=== PATIENT | female | born 1970 | race Caucasian/White ===

== ENCOUNTER 2021-07-30 10:19 | Emergency (ER) | payer OTHER ==
[~2021-07-30 10:19] MED LIST: ANTIVERT25 MG PO; ATARAX25 MG PO; AZATHIOPRINE50 MG PO; BACTRIM DS TAB1 EACH PO; BENZONATATE100 MG PO; CEFDINIR300 MG PO; CLOTRIMAZOLE10 ML PO; CORTISPORIN-TC10 M1 AU; CYMBALTA 30MG C30 MG PO; DIFLUCAN 100MG100 MG PO; DULERA 100 MCG8.8 GM INH; DUONEB 2.5-0.5M1 AMP INH; DUONEB 2.5-0.5M1 AMP NEB; ESTRACE1 MG PO; EVOXAC30 MG PO; FLOMAX0.4 MG PO; FLUMADINE100 MG PO; LEVAQUIN750 MG PO; METAMUCIL1 DOSE PO; MIRALAX17 GM PO; MUCINEX 600MG600 MG PO; NEURONTIN300 MG PO; NYSTATIN SUSP1 ML/ML SSW; PLAQUENIL200 MG PO; PREDNISONE5 MG PO; PROTONIX 40MG T40 MG PO; SINGULAIR10 MG PO; SPIRIVA18 MCG INH; ZOCOR40 MG PO; ZOFRAN8 MG PO
[2021-07-30] MEDS ORDERED: CYCLOBENZAPRINE10 MG PO (14:43)
[2021-07-30] MEDS ORDERED: RIZATRIPTAN10 M1 PO (14:43)
[2021-07-30] MEDS ORDERED: REGLAN10 MG PO (14:43)
== END 2021-07-30 15:14 | disposition home or self-care (01) ==
LOC: FER 10:19
DX: G43.909 Migraine, unspecified, not intractable, without status migrainosus (principal); M54.6 Pain in thoracic spine; M54.2 Cervicalgia; Z90.49 Acquired absence of other specified parts of digestive tract; F17.210 Nicotine dependence, cigarettes, uncomplicated
CPT/HCPCS: 70450; 72125; 72131; J3030

== ENCOUNTER 2021-08-23 08:15 | Inpatient (IN) | payer OTHER ==
[~2021-08-23] VITALS: Ht 176.5 cm; Wt 84.5 kg
[~2021-08-23 08:15] MED LIST changes: +CYCLOBENZAPRINE10 MG PO; +PREDNISONE 20MG20 MG PO; +REGLAN10 MG PO; +RIZATRIPTAN10 M1 PO
[2021-08-23 09:19] LABS: BASOPHIL 0.4 % (0-2); EOSINOPHIL 0.3 % (0-5); HCT 39.4 % (37.0-47.0); LYMPHOCYTE 11.2 % (15-48); MCH 33.1 pg (25.0-31.0); MCV 100.3 fL (78.0-100.0); MONOCYTE 6.3 % (0-12); MPV 10.5 fL (6.0-9.5); NEUTROPHIL 81.5 % (41-80); NRBC 0; PLT 268 K/uL (150-400); RBC 3.93 M/uL (4.20-5.40); RDW 14.5 % (11.5-14.0)
[2021-08-23 09:21] LABS: ALBUMIN 3.5 g/dL (3.4-5.0); BILIRUBIN - TOTAL 0.4 mg/dL (0.2-1.0); BUN/CREAT RATIO (CALC) 13.9 RATIO; CREATININE 0.79 mg/dL (0.51-0.95); GLOBULIN (CALCULATION) 3.3 g/dL; POTASSIUM 4.2 mmol/L (3.5-5.1); TOTAL PROTEIN 6.8 g/dL (6.4-8.2)
[2021-08-23 09:23] LABS: INR 0.98 (0.9-1.2); PROTHROMBIN TIME 12.4 SECONDS (11.8-13.4)
[2021-08-23 09:24] LABS: PTT 35.9 SECONDS (24.4-34.7)
[2021-08-23 09:25] LABS: D-DIMER 0.76 ug/mLFEU (0.00-0.41)
[2021-08-23 09:27] LABS: PRO-BNP 311 pg/mL (<125)
[2021-08-23 09:30] LABS: LACTIC ACID 1.9 mmol/L (0.4-1.9)
[2021-08-23] MEDS ORDERED: MUCINEX 600MG600 MG PO (13:17)
[2021-08-23] MEDS ORDERED: NYSTATIN SUSP1 ML/ML SSP (13:19)
[2021-08-23] MEDS ORDERED: CEFDINIR300 MG PO (13:20)
[2021-08-23] MEDS ORDERED: ANORO ELLIPTA1 EACH INH (13:21)
[2021-08-23] MEDS ORDERED: XANAX0.25 MG PO (13:23)
[2021-08-23] MEDS ORDERED: DEXILANT60 MG PO (13:25)
[2021-08-23] MEDS ORDERED: PILOCARPINE HCL PO (13:27)
[2021-08-23] MEDS ORDERED: FLEXERIL5 MG PO (13:29)
--- NOTE | 2021-08-24 19:50 | NUR ---
WALKED IN ON PATIENT TAKING HOME MEDICATIONS FROM HER PURSE PATIENT ASKED "NOT TO TELL BUT TO KEEP IT OUR SECRET' EXPLAINED THE IMPORTANCE OF NOT COMBINING HOME MEDICATIONS WITH INPATIENT MEDICATIONS PATIENT STATED "ITS JUST ALLERGY MEDICATION IT WON'T HURT ANYTHING", DR ALVARADO MADE AWARE OF THE SITUATION
[2021-08-25 06:22] LABS: HCT 37.7 % (37.0-47.0); HGB 12.7 g/dl (12.5-16.0); MCH 34.1 pg (25.0-31.0); MCHC 33.7 g/dL (32.0-36.0); MCV 101.3 fL (78.0-100.0); MPV 10.5 fL (6.0-9.5); RBC 3.72 M/uL (4.20-5.40); RDW 14.6 % (11.5-14.0)
[2021-08-25 06:26] LABS: WBC 16.3 K/uL (4.0-10.5)
[2021-08-25 07:01] LABS: BUN/CREAT RATIO (CALC) 31.1 RATIO; CREATININE 0.61 mg/dL (0.51-0.95); POTASSIUM 4.6 mmol/L (3.5-5.1)
[2021-08-25] MEDS ORDERED: VIBRAMYCIN100 MG PO (12:10)
[2021-08-25] MEDS ORDERED: PREDNISONE 10MG10 MG PO (12:10)
[2021-08-25] MEDS ORDERED: DUONEB 2.5-0.5M1 AMP NEB (12:52)
--- NOTE | 2021-08-25 15:52 | NUR ---
08/25/21 Ms. Roberto lives at home with her spouse. She is followed by Coco Delgado APRN and a neurologist. She receives outpatient PT at [facility]. Home was not needed as evidenced by 02 sats at 90% on walk test.
== END 2021-08-25 13:55 | disposition home or self-care (01) | DRG 193 ==
LOC: FER 08:15 → FTCU 11:24
PROVIDERS: Emergency Medicine; ADMIT Hospitalist
DX: J18.9 Pneumonia, unspecified organism (principal); J96.01 Acute respiratory failure with hypoxia; J44.1 Chronic obstructive pulmonary disease with (acute) exacerbation; J44.0 Chronic obstructive pulmonary disease with (acute) lower respiratory infection; Z20.822 Contact with and (suspected) exposure to COVID-19; M35.00 Sjogren syndrome, unspecified; E11.9 Type 2 diabetes mellitus without complications; M32.9 Systemic lupus erythematosus, unspecified; G62.9 Polyneuropathy, unspecified; M79.7 Fibromyalgia; G40.909 Epilepsy, unspecified, not intractable, without status epilepticus; F17.210 Nicotine dependence, cigarettes, uncomplicated; E78.5 Hyperlipidemia, unspecified; Z87.01 Personal history of pneumonia (recurrent); Z90.710 Acquired absence of both cervix and uterus; Z90.49 Acquired absence of other specified parts of digestive tract; Z98.890 Other specified postprocedural states; Z88.1 Allergy status to other antibiotic agents; Z88.5 Allergy status to narcotic agent; Z88.8 Allergy status to other drugs, medicaments and biological substances
CPT/HCPCS: 36415; 36600; 71045; 71275; 80048; 80053; 82803; 83605; 83880; 84145; 84484; 85025; 85379; 85610; 85730; 87040; 93005; 94640; 94664; J0456; J0696; J1650; J2930; J7050; Q9967; U0002